=== PATIENT | male | born 2000 | race Hispanic/Latino ===

== ENCOUNTER 2019-10-24 18:16 | Emergency (ER) | payer OTHER ==
[~2019-10-24] VITALS: Ht 195.6 cm; Wt 106.6 kg
--- NOTE | 2019-10-24 19:08 | Emergency Department Note ---
History of Present Illnes History of Present Illness Chief Complaint: Extremity Trauma/Pain History of Present Illness This is a 19 year old male arrives to the ED after sustaining a laceration over his right index finger while washing dishes. Chief Complaint Comment states he was washing dishes and some glass shattered and cut his right index finger presents with approx 1/2 in lac seen by dr fulton Historian: Patient Onset (how long ago): hour(s) Radiation: Reports non-radiation Severity: mild Duration (how long): hour(s) Timing of current episode: constant Progression: unchanged Chronicity: new Context: Reports trauma/injury Relieving factors: none Past Medical/Family History Physician Review I have reviewed the patient's past medical and family history. Any updates have been documented here. Past Medical History Recent Fever: No Clinical Suspicion of Infectio: No New/Unexplained Change in Ment: No Past Medical History: None Other Surgery: pablo luna elbow sx right elbow Social History Smoking Cessation: Never Smoker Counseling Performed: No Alcohol Use: None Any Illegal Drug Use: No Physically hurt or threatened: No Other Any Pre-Existing Lines (PICC,: No Review of Systems Review of Systems Constitutional: Reports no symptoms EENTM: Reports no symptoms Cardiovascular: Reports no symptoms Respiratory: Reports no symptoms Gastrointestinal: Reports no symptoms Genitourinary: Reports no symptoms Musculoskeletal: Reports no symptoms Integumentary: Reports as per HPI Neurological: Reports no symptoms Psychological: Reports no symptoms Endocrine: Reports no symptoms Hematological/Lymphatic: Reports no symptoms Physical Exam Related Data Allergies: Coded Allergies: No Known Allergies (Unverified , 10/24/19) Triage Vital Signs Vital Signs Date Time Temp Pulse Resp B/P (MAP) Pulse Ox O2 Delivery O2 Flow Rate FiO2 10/24/19 18:23 Room Air 10/24/19 18:34 98.4 85 16 100 Physical Exam CONSTITUTIONAL Constitutional: Present well-developed, Present well-nourished HENT HENT: Present normocephalic, Present atraumatic, Present oropharynx clear/moist, Present nose normal HENT L/R: Present left ext ear normal, Present right ext ear normal EYES Eyes: Reports PERRL, Reports conjunctivae normal NECK Neck: Present ROM normal PULMONARY Pulmonary: Present effort normal, Present breath sounds normal CARDIOVASCULAR Cardiovascular: Present regular rhythm, Present heart sounds normal, Present capillary refill normal, Present normal rate GASTROINTESTINAL Abdominal: Present soft, Present nontender, Present bowel sounds normal GENITOURINARY Genitourinary: Present exam deferred SKIN Skin: Present warm, Present other (1 cm superficial linear flap-like laceration noted over the MCP joint of right index finger, bleeding controlled, normal flexion and extension of digit, no tendon involvement noted base of injury visualized) MUSCULOSKELETAL Musculoskeletal: Present ROM normal NEUROLOGICAL Neurological: Present alert, Present oriented x 3, Present no gross motor or sensory deficits PSYCHOLOGICAL Psychological: Present mood/affect normal, Present judgement normal Results Imaging Imaging results reviewed: Yes Procedures Laceration Laceration: Laceration 1 Site: hand Description: flap Depth: simple, single layer Pre-repair: irrigated extensively Size (cm): other (2 cm) Technique: other (dermabond) Assessment & Plan Medical Decision Making MDM 19-year-old male arrives to the ED after sustaining a laceration, wound extensively irrigated, x-ray noted no foreign bodies, Dermabond applied given well approximated nature of laceration- patient stable for discharge. Assessment & Plan Final Impression: (1) Accidental laceration Depart Disposition: HOME, SELF-CARE Last Vital Signs Date Time Temp Pulse Resp B/P (MAP) Pulse Ox O2 Delivery O2 Flow Rate FiO2 10/24/19 18:34 98.4 85 16 155/82 100 Room Air SHANTELLE FULTON DO Oct 24, 2019 19:08
--- NOTE | 2019-10-24 20:37 | Diagnostic Imaging Report ---
HAND 3+ VIEWS LEFT - 3 views HISTORY: Laceration to the left index finger. COMPARISON: None available. FINDINGS: Bones: No acute displaced fracture. Osseous alignment is within normal limits. Joints: The joint spaces are well-maintained. Soft tissues: Laceration in the midportion of the second finger at the level of the proximal interphalangeal joint. No radiopaque foreign body. Subtle density projected on the soft tissues of the lateral aspect of the third finger is nonspecific. IMPRESSION: No acute osseous abnormality. Signed by: Dr. Tien Moses M.D. on 10/24/2019 8:34 PM
== END 2019-10-24 19:45 | disposition home or self-care (01) ==
LOC: ER 18:29
DX: S61.210A Laceration without foreign body of right index finger without damage to nail, initial encounter (principal); W25.XXXA Contact with sharp glass, initial encounter; Y93.89 Activity, other specified; Y92.010 Kitchen of single-family (private) house as the place of occurrence of the external cause
CPT/HCPCS: 99283